=== PATIENT | male | born 1980 | race Caucasian/White ===

== ENCOUNTER → 2016-08-25 | Outpatient (CLI) | payer OTHER ==
[~2016-08-25] VITALS: Ht 182.9 cm; Wt 98.9 kg
[~2016-08-25] MED LIST: BUPIVACAINE 0.25% 30 ML (SENSORCAINE) VIAL ONE; CLON1TAB69 PO; LISI40TA PO; METO100T5 PO; NF-ESOM40C PO; TRIAMCINOLONE ACET (KENALOG-40) 40 MG/ML 1 ML VIAL ONE; [UNRECOGNIZED DRUG - OTHER]
--- OUTSIDE RECORDS SUMMARY | 2016-08-25 13:16 | XMS REPORT | Continuity of Care Document ---
Author Author [facility] Organization [facility] Address Unknown Phone Unavailable Allergies Active Description Code Type Severity Reaction Onset Reported/Identified Relationship to Patient Clinical Status Yes aspirin [id number] Drug Allergy Unknown N/A 02/10/2013 Yes ketorolac tromethamine [id number] Drug Allergy Unknown N/A 02/10/2013 Yes tramadol [id number] Drug Allergy Unknown N/A 02/10/2013 Medications Problems Date Dx Coded Attending Type Code Diagnosis Diagnosed By 08/14/2016 MIKAL ANDERS, JOJO M Ot 789.01 ABDOMINAL PAIN, RIGHT UPPER QUADRANT 08/14/2016 MIKAL ANDERS, JOJO M Ot V72.84 EXAM PRE-OPERATIVE NOS 08/14/2016 MIKAL ANDERS, JOJO M Ot 401.9 HYPERTENSION NOS 08/14/2016 MIKAL ANDERS, JOJO M Ot 531.90 STOMACH ULCER NOS 08/14/2016 MIKAL ANDERS, JOJO M Ot 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.90 DUODENAL ULCER NOS 08/14/2016 MIKAL ANDERS, JOJO M Ot 553.3 DIAPHRAGMATIC HERNIA 08/14/2016 MIKAL ANDERS, JOJO M Ot 789.01 ABDOMINAL PAIN, RIGHT UPPER QUADRANT 08/14/2016 MIKAL ANDERS, JOJO M Ot 789.01 ABDOMINAL PAIN, RIGHT UPPER QUADRANT 08/14/2016 MIKAL ANDERS, JOJO M Ot 401.9 HYPERTENSION NOS 08/14/2016 MIKAL ANDERS, JOJO M Ot 531.90 STOMACH ULCER NOS 08/14/2016 MIKAL ANDERS, JOJO M Ot 532.90 DUODENAL ULCER NOS 08/14/2016 MIKAL ANDERS, JOJO M Ot 553.3 DIAPHRAGMATIC HERNIA 08/15/2016 MIKAL ANDERS, JOJO M Ot V72.84 EXAM PRE-OPERATIVE NOS 08/15/2016 JOJO REN MD M Ot 401.9 HYPERTENSION NOS 08/15/2016 MIKAL ANDERS, JOJO M Ot 531.90 STOMACH ULCER NOS 08/15/2016 JOJO REN MD M Ot 532.90 DUODENAL ULCER NOS 08/15/2016 MIKAL ANDERS, JOJO William Ot 553.3 DIAPHRAGMATIC HERNIA 08/15/2016 MIKAL ANDERS, JOJO William Ot 789.01 ABDOMINAL PAIN, RIGHT UPPER QUADRANT 08/15/2016 MIKAL ANDERS, JOJO William Ot 789.01 ABDOMINAL PAIN, RIGHT UPPER QUADRANT 08/22/2016 MIKAL ANDERS, JOJO William Ot V72.84 EXAM PRE-OPERATIVE NOS 08/22/2016 MIKAL ANDERS, JOJO Wililam Ot 401.9 HYPERTENSION NOS 08/22/2016 MIKAL ANDERS, JOJO William Ot 531.90 STOMACH ULCER NOS 08/22/2016 MIKAL ANDERS, JOJO William Ot 532.90 DUODENAL ULCER NOS 08/22/2016 MIKAL ANDERS, JOJO William Ot 553.3 DIAPHRAGMATIC HERNIA 08/22/2016 MIKAL ANDERS, JOJO William Ot 789.01 ABDOMINAL PAIN, RIGHT UPPER QUADRANT 08/22/2016 MIKAL ANDERS, JOJO William Ot 789.01 ABDOMINAL PAIN, RIGHT UPPER QUADRANT Procedures Results Encounters ACCT No. Visit Date/Time Discharge Status Pt. Type Provider Facility Loc./Unit Complaint [id number] 02/24/2013 11:55:00 2012 23:59:59 CLS Outpatient JOJO REN MD [facility] RAD RUQ PAIN [id number] 02/21/2013 07:56:00 2012 23:59:59 CLS Outpatient JOJO REN MD [facility] RAD RUQ PAIN [id number] 02/14/2013 09:54:00 2012 23:59:59 CLS Outpatient JOJO REN MD [facility] SDC DYSPHAGIA [id number] 02/10/2013 07:12:00 2012 23:59:59 CLS Outpatient JOJO REN MD [facility] PREOP DYSPHAGIA
[2016-08-25 13:35] VITALS: BP 141/101
[2016-08-25 14:35] VITALS: BP 144/101
--- NOTE | 2016-08-25 14:52 | Pain Medicine-Procedure ---
Procedure Pre-Op/Post-Op Diagnosis Diagnosis: disc disorder with radiculopathy, lumbar Indications for Operation Low back and hip pain Attending Surgeon Betsey Procedure Date of Service: Aug 25, 2016 Procedure: Lumbar Epidural Steroid Injection at the L5/S1 Level under Fluoroscopic Guidance and left sacroiliac joint injection Procedure: Patient was identified in the holding area. After risks, benefits, and alternatives were discussed with the patient, informed consent was obtained. Patient was brought to the fluoroscopy suite and placed prone on the procedure room table. A time out was performed. Vital signs were monitored throughout the procedure. The patients low back was prepped and draped in the usual sterile fashion. The patients skin was anesthetized using 2% Lidocaine. A Tuohy needle was inserted and advanced to the L5-S1 epidural space under fluoroscopic guidance using the loss of resistance technique and intermittent projection of fluoroscopy. There was no paresthesia with needle placement. The needle position was confirmed in both the AP and lateral view. After negative aspiration 2ml of non-ionic contrast was injected under live fluoroscopy which showed good spread of the contrast in the epidural space at the appropriate level, there was no intravascular or subarachnoid spread. Again, after negative aspiration for heme or CSF, 2 ml of 0.25% Bupivicaine, 2ml of preservative free normal saline, and 80mg of Kenalog was injected. The needle was removed and a sterile bandage was placed. Attention was then directed to the left sacroiliac joint which was identified under fluoroscopic guidance. The skin overlying the posterior inferior one third of the sacroiliac joint was anesthetized with 1 percent lidocaine and a 22 -gauge 3-1/2 inch needle was inserted and advanced into the joint. Following negative aspiration a total of 40 mg of Kenalog and 2 mL of 0.25 percent bupivacaine was injected. Needle was flushed with lidocaine and removed. Sterile bandage was applied. Patient tolerated the procedures well with no apparent complications. Complications None GAYLE HERNANDEZ MD Aug 25, 2016 2:52 pm
== END ==
LOC: CARD 13:11
PROVIDERS: ATTEND Pain Medicine Pain Medicine
DX: M51.16 Intervertebral disc disorders with radiculopathy, lumbar region (principal); M53.3 Sacrococcygeal disorders, not elsewhere classified; Z79.899 Other long term (current) drug therapy
CPT/HCPCS: 27096; 62323